=== PATIENT | female | born 1975 | race African-American/Black ===

== ENCOUNTER 2018-01-14 13:12 | Inpatient (IN) | payer OTHER ==
[2018-01-14 14:22] VITALS: BMI 23.6
--- NOTE | 2018-01-14 15:28 | HP ---
CIWA Score Nausea/Vomitin Muscle Tremors: 2 Anxiety: 2 Agitation: 2 Paroxysmal Sweats: 2 Orientation: 0-Oriented Tacttile Disturbances: 2-Mild Itch/Numbness/Burn Auditory Disturbances: 0-None Visual Disturbances: 0-None Headache: 2-Mild CIWA-Ar Total Score: 14 - Admission Criteria [facility] Guidelines: Admission for Medically Managed Detox: Requires at least one of the followin. CIWA greater than 12 2. Seizures within the past 24 hours 3. Delirium tremens within the past 24 hours 4. Hallucinations within the past 24 hours 5. Acute intervention needed for co occurring medical disorder 6. Acute intervention needed for co occurring psychiatric disorder 7. Severe withdrawal that cannot be handled at a lower level of care (continued vomiting, continued diarrhea, abnormal vital signs) requiring intravenous medication and/or fluids 8. Patient presents the following: CIWA greater than 12 Admission Criteria Met: Admission criteria met Admission ROS S - [facility] Chief Complaint: I"m tired of getting high and I need help. Allergies/Adverse Reactions: Allergies Allergy/AdvReac Type Severity Reaction Status Date / Time No Known Allergies Allergy Verified 01/14/18 15:43 History of Present Illness: Female pt with h/o polysubstance use seeking to d/c drug use. Exam Limitations: No Limitations - Ebola screening Have you traveled outside of the country in the last 21 days: No Have you had contact with anyone from an Ebola affected area: No Have you been sick,other than usual withdrawal symptoms: No - Review of Systems Constitutional: Loss of Appetite, Night Sweats, Changes in sleep, Weakness EENT: reports: Dental Problems (missing) Respiratory: reports: SOB with Exertion Cardiac: reports: No Symptoms Reported GI: reports: Nausea, Poor Appetite, Indigestion, Abdominal cramping : reports: Frequency Musculoskeletal: reports: Joint Pain (rt shoulder), Muscle Pain, Joint Stiffness Integumentary: reports: No Symptoms Reported Neuro: reports: Headache, Tingling (toes and finger tips) Endocrine: reports: No Symptoms Reported Hematology: reports: No Symptoms Reported Psychiatric: reports: Anxious, Depressed Other Systems: Reviewed and Negative Patient History - Patient Medical History Hx Anemia: No Hx Asthma: Yes (albuterol ) Hx Chronic Obstructive Pulmonary Disease (COPD): No Hx Cancer: No Hx Cardiac Disorders: No Hx Congestive Heart Failure: No Hx Hypertension: Yes (not taking meds ) Hx Hypercholesterolemia: No Hx Pacemaker: No HX Cerebrovascular Accident: No Hx Seizures: No Hx Dementia: No Hx Diabetes: No Hx Gastrointestinal Disorders: No Hx Liver Disease: No Hx Genitourinary Disorders: No Hx Sexually Transmitted Disorders: No Hx Renal Disease (ESRD): No Hx Thyroid Disease: No Hx Human Immunodeficiency Virus (HIV): No Hx Hepatitis C: No Hx Depression: Yes Hx Suicide Attempt: Yes (x1, cut herself 2009 ) Hx Bipolar Disorder: Yes (topamax, welbutrin , not taken in 8 months ) Hx Schizophrenia: No - Patient Surgical History Past Surgical History: Yes Hx Orthopedic Surgery: Yes (rt rotatorr cuff tear ) Anesthesia Reaction: No - PPD History Documented Results: Negative w/o proof Implanted On Prior [facility] Admission?: Yes PPD to be Administered?: Yes - Reproductive History Patient is a Female of Child Bearing Age (11 -55 yrs old): Yes Last Menstrual Period: 01/12/18 Patient : No - Smoking Cessation Smoking history: Current every day smoker Have you smoked in the past 12 months: Yes Aproximately how many cigarettes per day: 20 Cigars Per Day: 0 Hx Chewing Tobacco Use: No Initiated information on smoking cessation: Yes 'Breaking Loose' booklet given: 01/14/18 - Substance & Tx. History Substance Use Type: Alcohol, Cocaine, Marijuana Hx Substance Use Treatment: No - Substances Abused Alcohol Route: Oral Frequency: Daily Amount used: vodka 1/2 galloon Age of first use: 14 Date of Last Use: 01/14/18 Crack Route: Smoking Frequency: Daily Amount used: 2-3 gms /d Age of first use: 18 Date of Last Use: 01/13/18 Ectasy Route: Oral Frequency: 1-2 times per week Amount used: 1-2/wk Age of first use: 40 Date of Last Use: 01/10/18 Marijuana/Hashish Route: Smoking Frequency: Daily Amount used: 1 oz /d Age of first use: 14 Date of Last Use: 01/14/18 Family Disease History - Family Disease History Family Disease History: Diabetes: Brother, [place]: Father (lung ) Admission Physical Exam [facility] - Vital Signs Vital Signs: Vital Signs - 24 hr 01/14/18 14:20 Temperature 96.4 F L Pulse Rate 78 Respiratory 18 Rate Blood Pressure 116/70 42 y/o f pt with a blonde wig , aox3 in nad ambulating and cooperative with exam - Physical General Appearance: Yes: No Apparent Distress, Appropriately Dressed, Thin, Anxious HEENTM: Yes: EOMI, Hearing grossly Normal, Normal ENT Inspection, Normocephalic , Normal Voice, ELADIO, Other (multiple missing teeth.) Respiratory: Yes: Within Normal Limits, Chest Non-Tender, Lungs Clear, Normal Breath Sounds, Decreased Breath Sounds, No Respiratory Distress Neck: Yes: No masses,lesions,Nodules, Supple, Trachea in good position Breast: Yes: Breast Exam Deferred Cardiology: Yes: Regular Rhythm, Regular Rate, S1, S2 Abdominal: Yes: Non Tender, Flat, Soft, Increased Bowel Sounds Genitourinary: Yes: Frequency Back: Yes: Decreased Range of Motion Musculoskeletal: Yes: Back pain, Joint Stiffness (rt shoulder , with well healed small scars) Extremities: Yes: Tremors Neurological: Yes: laboratory asst II-XII NML intact, Fully Oriented, Alert, Motor Strength 5/5, Normal Response, Numbness (toes cary) Integumentary: Yes: Moist Lymphatic: Yes: Within Normal Limits - Diagnostic (1) Chronic alcoholism Current Visit: Yes Status: Chronic (2) Crack cocaine use Current Visit: Yes Status: Chronic (3) Cannabis abuse Current Visit: Yes Status: Chronic (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
[2018-01-14] MEDS ORDERED: LOPERAMIDE HCL 2 MG CAPSULE PO PRN (15:52)
[2018-01-14] MEDS ORDERED: MENTHOL/PHENOL 1 EACH UD MM PRN (15:52)
[2018-01-14] MEDS ORDERED: MAGNESIUM HYDROX 2400MG/30ML ORAL SUSPENSION 30 ML CUP PO PRN (15:52)
[2018-01-14] MEDS ORDERED: chlordiazePOXIDE HCL 25 MG CAPSULE PO PRN (15:52)
[2018-01-14] MEDS ORDERED: hydrOXYzine PAMOATE 25 MG CAPSULE (FP) PO PRN (15:52)
[2018-01-14] MEDS ORDERED: MAG HYDROX/AL HYDROX/SIMETH 30 ML UNIT-DOSE CUP PO PRN (15:52)
[2018-01-14] MEDS ORDERED: MAGNESIUM CITRATE 300 ML BOTTLE PO PRN (15:52)
[2018-01-14] MEDS ORDERED: P-EPHED 60MG/TRIPROLIDI 2.5MG TABLET PO PRN (15:52)
[2018-01-14] MEDS ORDERED: guaiFENesin/D-METHORPHAN HB 10 ML UNIT-DOSE CUPS PO PRN (15:52)
[2018-01-14] MEDS ORDERED: NICOTINE POLACRILEX 4 MG GUM BC PRN (15:52)
[2018-01-14] MEDS ORDERED: ALBUTEROL SO4 8 GM HFA INHALER IH PRN (15:55)
[2018-01-14] MEDS: chlordiazePOXIDE HCL 25 MG CAPSULE PO SCH ×2 (17:43→23:20)
[2018-01-14] MEDS: IBUPROFEN 400 MG TABLET (FP) PO PRN (20:48)
[2018-01-14] MEDS ORDERED: MELATONIN 5 MG TABLETS PO PRN (22:00)
[2018-01-14] MEDS: BUDESONIDE/FORMETEROL FUMARATE 80/4.5 mcg INHALER IH SCH (23:18)
[2018-01-14] MEDS: THIAMINE HCL 100 MG TABLET (FP) PO SCH (23:19)
[2018-01-15] MEDS: chlordiazePOXIDE HCL 25 MG CAPSULE PO SCH ×4 (05:51→22:13)
[2018-01-15] MEDS: IBUPROFEN 400 MG TABLET (FP) PO PRN ×3 (05:52→22:15)
--- NOTE | 2018-01-15 11:14 | PN ---
S CIWA - CIWA Score Nausea/Vomitin-No Nausea/No Vomiting Muscle Tremors: 4-Moderate,w/Arms Extend Anxiety: 3 Agitation: 4-Moderately Restless Paroxysmal Sweats: 3 Orientation: 0-Oriented Tacttile Disturbances: 0-None Auditory Disturbances: 0-None Visual Disturbances: 0-None Headache: 1-Very Mild CIWA-Ar Total Score: 15 BHS Progress Note (SOAP) Subjective: agitation sweats shakes interrupted sleep body aches irritable Objective: 01/15/18 11:14 Vital Signs Temperature 97.7 F 01/15/18 09:06 Pulse Rate 82 01/15/18 09:06 Respiratory Rate 18 01/15/18 09:06 Blood Pressure 127/77 01/15/18 09:06 O2 Sat by Pulse Oximetry (%) labs ordered; results pending aaox3 ambulating no acute distress Assessment: 01/15/18 11:16 withdrawal sx Plan: continue detox increase fluids f/u pending lab results
[2018-01-15] MEDS: BUDESONIDE/FORMETEROL FUMARATE 80/4.5 mcg INHALER IH SCH ×2 (11:25→22:13)
[2018-01-15] MEDS: PRENATAL VITAMINS W/ FOLIC ACID TABLET (FP) PO SCH (11:30)
[2018-01-15] MEDS: NICOTINE 21 MG/24 HOURS TOPICAL PATCH TD SCH (11:40)
--- NOTE | 2018-01-15 14:45 | CONSULT ---
[facility] Psychiatric Consult - Data Date of interview: 01/15/18 Admission source: [facility] Identifying data: This is 42 years old fe,rolando, single mother of bala, living with family, on PA support, with Bipolar Disorder history, with psychiatric hospitalization history, with history of Heroin, Cannabis, Cocaine, Alcohol, Nicotine dependence/abuse, reporting withdrawal synptoms and seeking for detox. Substance Abuse History: Smoking history: Current every day smoker. Have you smoked in the past 12 months: Yes. Aproximately how many cigarettes per day: 20. Cigars Per Day: 0. Hx Chewing Tobacco Use: No. Initiated information on smoking cessation: Yes. 'Breaking Loose' booklet given: 01/14/18. - Substance & Tx. History. Substance Use Type: Alcohol, Cocaine, Marijuana. Hx Substance Use Treatment: No. - Substances Abused. Alcohol. Route: Oral. Frequency: Daily. Amount used: vodka 1/2 galloon. Age of first use: 14. Date of Last Use : 01/14/18. Crack. Route: Smoking. Frequency: Daily. Amount used: 2-3 gms /d. Age of first use: 18. Date of Last Use: 01/13/18. Ectasy. Route: Oral. Frequency: 1-2 times per week. Amount used: 1-2/wk. Age of first use: 40. Date of Last Use: 01/10/18. Marijuana/Hashish. Route: Smoking. Frequency: Daily. Amount used: 1 oz /d. Age of first use: 14. Date of Last Use: 01/14/18 Medical History: Denies significant medical issues Psychiatric History: Patient reports to carry Bipolar Disorder, reports psychiatric admission on 2009 cutting nher forearm, no stitches visible, reports good response on Wellbutrin XI, and Topamax i9n thye past, patient doesnot remember dosages. Denies suicidal, homicidal history after 2009, motivated to restart medications. Physical/Sexual Abuse/Trauma History: Denies Additional Comment: Topamax 25mg po bid. Wellbutrin XL 150mg poqd. Seroquel 100mg po qhs Mental Status Exam - Mental Status Exam Alert and Oriented to: Person Cognitive Function: Fair Patient Appearance: Well Groomed Mood: Suspicious, Anxious, Irritable Affect: Labile Patient Behavior: Talkative Speech Pattern: Appropriate, Artificially Ventilated Thought Process: Circumstantial, Goal Oriented Thought Disorder: Being Controlled Hallucinations: Denies Suicidal Ideation: Denies Homicidal Ideation: Denies Insight/Judgement: Fair Sleep: Difficulty falling asleep Appetite: Fair Muscle strength/Tone: Normal Gait/Station: Normal Additional Comments: Topamax 25mg po bid. Wellbutrin XL 150mg poqd. Seroquel 100mg po qhs Psychiatric Findings - Problem List (Husser 1, 2,3) (1) Bipolar disorder Current Visit: Yes Status: Acute (2) Ecstasy abuse Current Visit: Yes Status: Acute (3) Cannabis abuse Current Visit: Yes Status: Chronic (4) Chronic alcoholism Current Visit: Yes Status: Chronic (5) Crack cocaine use Current Visit: Yes Status: Chronic - Initial Treatment Plan Initial Treatment Plan: Topamax 25mg po bid. Wellbutrin XL 150mg poqd. Seroquel 100mg po qhs
[2018-01-15] MEDS: QUEtiapine FUMARATE 100 MG TABLET (FP) PO SCH (22:13)
[2018-01-15] MEDS: TOPIRAMATE 25 MG TABLET (FP) PO SCH (22:13)
[2018-01-15] MEDS: THIAMINE HCL 100 MG TABLET (FP) PO SCH (22:13)
[2018-01-16] MEDS: chlordiazePOXIDE HCL 25 MG CAPSULE PO SCH ×2 (06:15→11:19)
[2018-01-16] MEDS: IBUPROFEN 400 MG TABLET (FP) PO PRN ×2 (06:17→22:25)
[2018-01-16 10:09] LABS: BASO % 0.6 % (0-2.0); HEMATOCRIT 36.7 % (32.4-45.2); HEMOGLOBIN 11.9 GM/dL (10.7-15.3); LYMPH % 43.6 % (8-40); MCH 30.6 pg (25.7-33.7); MCHC 32.3 g/dl (32.0-36.0); MEAN CELL VOLUME 94.6 fl (80-96); MEAN PLT VOLUME 8.6 fl (7.5-11.1); MONO % 8.9 % (3.8-10.2); NEUT % 43.9 % (42.8-82.8); PLATELET COUNT 189 K/MM3 (134-434); RBC 3.88 M/mm3 (3.60-5.2); RDW 14.8 % (11.6-15.6); WHITE BLOOD COUNT 3.5 K/mm3 (4.0-10.0)
[2018-01-16 11:01] LABS: ALBUMIN 3.1 g/dl (3.4-5.0); ALK PHOS 70 U/L (45-117); ANION GAP 7 MMOL/L (8-16); BILIRUBIN,TOTAL 0.1 mg/dL (0.2-1); BLOOD UREA NITROGEN 22 mg/dL (7-18); CALCIUM 8.5 mg/dL (8.5-10.1); CHLORIDE 109 mmol/L (98-107); CO2 25 mmol/L (21-32); GLUCOSE,RANDOM 100 mg/dL (74-106); POTASSIUM 4.5 mmol/L (3.5-5.1); SGOT/AST 14 U/L (15-37); SGPT/ALT 21 U/L (13-61); SODIUM 141 mmol/L (136-145); TOT PROT 6.1 g/dl (6.4-8.2)
[2018-01-16] MEDS: TOPIRAMATE 25 MG TABLET (FP) PO SCH ×2 (11:18→22:21)
[2018-01-16] MEDS: PRENATAL VITAMINS W/ FOLIC ACID TABLET (FP) PO SCH (11:18)
[2018-01-16] MEDS: BUDESONIDE/FORMETEROL FUMARATE 80/4.5 mcg INHALER IH SCH ×2 (11:20→22:21)
[2018-01-16] MEDS: ACETAMINOPHEN 325 MG TABLET (FP) PO PRN (11:21)
[2018-01-16] MEDS: NICOTINE 21 MG/24 HOURS TOPICAL PATCH TD SCH (11:22)
--- NOTE | 2018-01-16 11:52 | PN ---
S CIWA - CIWA Score Nausea/Vomitin-No Nausea/No Vomiting Muscle Tremors: 3 Anxiety: 3 Agitation: 3 Paroxysmal Sweats: 3 Orientation: 0-Oriented Tacttile Disturbances: 0-None Auditory Disturbances: 0-None Visual Disturbances: 0-None Headache: 1-Very Mild CIWA-Ar Total Score: 13 BHS Progress Note (SOAP) Subjective: agitation sweats shakes interrupted sleep body aches i need ensure. Objective: 01/16/18 12:02 Vital Signs Temperature 97.3 F L 01/16/18 11:41 Pulse Rate 75 01/16/18 11:41 Respiratory Rate 18 01/16/18 11:41 Blood Pressure 118/76 01/16/18 11:41 O2 Sat by Pulse Oximetry (%) Laboratory Tests 01/16/18 01/16/18 07:00 07:00 WBC 3.5 L RBC 3.88 Hgb 11.9 Hct 36.7 MCV 94.6 MCH 30.6 MCHC 32.3 RDW 14.8 Plt Count 189 MPV 8.6 Absolute Neuts (auto) 1.5 Neutrophils % 43.9 Lymphocytes % 43.6 H Monocytes % 8.9 Eosinophils % 3.0 Basophils % 0.6 Nucleated RBC % 0 Sodium 141 Potassium 4.5 Chloride 109 H Carbon Dioxide 25 Anion Gap 7 L BUN 22 H Creatinine 1.0 Creat Clearance w eGFR > 60 Random Glucose 100 Calcium 8.5 Total Bilirubin 0.1 L AST 14 L ALT 21 Alkaline Phosphatase 70 Total Protein 6.1 L Albumin 3.1 L aaox3 ambulating no acute distress Assessment: 01/16/18 12:02 withdrawal sx Plan: continue detox increase fluids ensure plus bid
[2018-01-16] MEDS: chlordiazePOXIDE 5 MG CAPSULE PO SCH ×2 (18:07→22:22)
[2018-01-16] MEDS: QUEtiapine FUMARATE 100 MG TABLET (FP) PO SCH (22:21)
[2018-01-16] MEDS: THIAMINE HCL 100 MG TABLET (FP) PO SCH (22:22)
[2018-01-17] MEDS: chlordiazePOXIDE 5 MG CAPSULE PO SCH ×2 (06:16→10:17)
[2018-01-17] MEDS: IBUPROFEN 400 MG TABLET (FP) PO PRN (06:18)
[2018-01-17] MEDS: TOPIRAMATE 25 MG TABLET (FP) PO SCH ×2 (10:16→22:10)
[2018-01-17] MEDS: PRENATAL VITAMINS W/ FOLIC ACID TABLET (FP) PO SCH (10:16)
[2018-01-17] MEDS: BUDESONIDE/FORMETEROL FUMARATE 80/4.5 mcg INHALER IH SCH ×2 (10:16→22:09)
[2018-01-17] MEDS: NICOTINE 21 MG/24 HOURS TOPICAL PATCH TD SCH (10:17)
[2018-01-17] MEDS: ACETAMINOPHEN 325 MG TABLET (FP) PO PRN (10:17)
--- NOTE | 2018-01-17 14:03 | PN ---
S Progress Note (SOAP) Subjective: Irritability, agitation, restlessness Objective: 01/17/18 14:02 Vital Signs 01/17/18 01/17/18 07:01 09:29 Temperature 97 F L 97.5 F L Pulse Rate 93 H 86 Respiratory 18 16 Rate Blood Pressure 145/102 H 115/64 Laboratory Last Values WBC 3.5 K/mm3 (4.0-10.0) L 01/16/18 07:00 RBC 3.88 M/mm3 (3.60-5.2) 01/16/18 07:00 Hgb 11.9 GM/dL (10.7-15.3) 01/16/18 07:00 Hct 36.7 % (32.4-45.2) 01/16/18 07:00 MCV 94.6 fl (80-96) 01/16/18 07:00 MCH 30.6 pg (25.7-33.7) 01/16/18 07:00 MCHC 32.3 g/dl (32.0-36.0) 01/16/18 07:00 RDW 14.8 % (11.6-15.6) 01/16/18 07:00 Plt Count 189 K/MM3 (134-434) 01/16/18 07:00 MPV 8.6 fl (7.5-11.1) 01/16/18 07:00 Absolute Neuts (auto) 1.5 K/mm3 (1.5-8.0) 01/16/18 07:00 Neutrophils % 43.9 % (42.8-82.8) 01/16/18 07:00 Lymphocytes % 43.6 % (8-40) H 01/16/18 07:00 Monocytes % 8.9 % (3.8-10.2) 01/16/18 07:00 Eosinophils % 3.0 % (0-4.5) 01/16/18 07:00 Basophils % 0.6 % (0-2.0) 01/16/18 07:00 Nucleated RBC % 0 % (0-0) 01/16/18 07:00 Sodium 141 mmol/L (136-145) 01/16/18 07:00 Potassium 4.5 mmol/L (3.5-5.1) 01/16/18 07:00 Chloride 109 mmol/L (98-107) H 01/16/18 07:00 Carbon Dioxide 25 mmol/L (21-32) 01/16/18 07:00 Anion Gap 7 MMOL/L (8-16) L 01/16/18 07:00 BUN 22 mg/dL (7-18) H 01/16/18 07:00 Creatinine 1.0 mg/dL (0.55-1.3) 01/16/18 07:00 Creat Clearance w eGFR > 60 (>60) 01/16/18 07:00 Random Glucose 100 mg/dL (74-106) 01/16/18 07:00 Calcium 8.5 mg/dL (8.5-10.1) 01/16/18 07:00 Total Bilirubin 0.1 mg/dL (0.2-1) L 01/16/18 07:00 AST 14 U/L (15-37) L 01/16/18 07:00 ALT 21 U/L (13-61) 01/16/18 07:00 Alkaline Phosphatase 70 U/L (45-117) 01/16/18 07:00 Total Protein 6.1 g/dl (6.4-8.2) L 01/16/18 07:00 Albumin 3.1 g/dl (3.4-5.0) L 01/16/18 07:00 RPR Titer Nonreactive (NONREACTIVE) 01/16/18 07:00 Labs noted Assessment: 01/17/18 14:02 Withdrawal sx Plan: Continue detox
[2018-01-17] MEDS: chlordiazePOXIDE HCL 10 MG CAPSULE PO SCH ×2 (17:57→22:10)
[2018-01-17] MEDS: THIAMINE HCL 100 MG TABLET (FP) PO SCH (22:09)
[2018-01-17] MEDS: QUEtiapine FUMARATE 100 MG TABLET (FP) PO SCH (22:10)
[2018-01-18] MEDS: chlordiazePOXIDE HCL 10 MG CAPSULE PO SCH (05:21)
[2018-01-18] MEDS: ACETAMINOPHEN 325 MG TABLET (FP) PO PRN (05:22)
[2018-01-18 07:11] VITALS: BP 118/81; PULSE 100; TEMP 97.3
--- NOTE | 2018-01-18 16:32 | DS ---
[facility] Detox Discharge Summary Admission Date: 01/14/18 Discharge Date: 01/18/18 - History Present History: Alcohol Dependence - Physical Exam Results Vital Signs: Vital Signs Temperature 97.3 F L 01/18/18 07:10 Pulse Rate 100 H 01/18/18 07:10 Respiratory Rate 20 01/18/18 07:10 Blood Pressure 118/81 01/18/18 07:10 O2 Sat by Pulse Oximetry (%) Pertinent Admission Physical Exam Findings: alcohol withdrawal sx Vital Signs Temperature 97.3 F L 01/18/18 07:10 Pulse Rate 100 H 01/18/18 07:10 Respiratory Rate 20 01/18/18 07:10 Blood Pressure 118/81 01/18/18 07:10 O2 Sat by Pulse Oximetry (%) Laboratory Last Values WBC 3.5 K/mm3 (4.0-10.0) L 01/16/18 07:00 RBC 3.88 M/mm3 (3.60-5.2) 01/16/18 07:00 Hgb 11.9 GM/dL (10.7-15.3) 01/16/18 07:00 Hct 36.7 % (32.4-45.2) 01/16/18 07:00 MCV 94.6 fl (80-96) 01/16/18 07:00 MCH 30.6 pg (25.7-33.7) 01/16/18 07:00 MCHC 32.3 g/dl (32.0-36.0) 01/16/18 07:00 RDW 14.8 % (11.6-15.6) 01/16/18 07:00 Plt Count 189 K/MM3 (134-434) 01/16/18 07:00 MPV 8.6 fl (7.5-11.1) 01/16/18 07:00 Absolute Neuts (auto) 1.5 K/mm3 (1.5-8.0) 01/16/18 07:00 Neutrophils % 43.9 % (42.8-82.8) 01/16/18 07:00 Lymphocytes % 43.6 % (8-40) H 01/16/18 07:00 Monocytes % 8.9 % (3.8-10.2) 01/16/18 07:00 Eosinophils % 3.0 % (0-4.5) 01/16/18 07:00 Basophils % 0.6 % (0-2.0) 01/16/18 07:00 Nucleated RBC % 0 % (0-0) 01/16/18 07:00 Sodium 141 mmol/L (136-145) 01/16/18 07:00 Potassium 4.5 mmol/L (3.5-5.1) 01/16/18 07:00 Chloride 109 mmol/L (98-107) H 01/16/18 07:00 Carbon Dioxide 25 mmol/L (21-32) 01/16/18 07:00 Anion Gap 7 MMOL/L (8-16) L 01/16/18 07:00 BUN 22 mg/dL (7-18) H 01/16/18 07:00 Creatinine 1.0 mg/dL (0.55-1.3) 01/16/18 07:00 Creat Clearance w eGFR > 60 (>60) 01/16/18 07:00 Random Glucose 100 mg/dL (74-106) 01/16/18 07:00 Calcium 8.5 mg/dL (8.5-10.1) 01/16/18 07:00 Total Bilirubin 0.1 mg/dL (0.2-1) L 01/16/18 07:00 AST 14 U/L (15-37) L 01/16/18 07:00 ALT 21 U/L (13-61) 01/16/18 07:00 Alkaline Phosphatase 70 U/L (45-117) 01/16/18 07:00 Total Protein 6.1 g/dl (6.4-8.2) L 01/16/18 07:00 Albumin 3.1 g/dl (3.4-5.0) L 01/16/18 07:00 RPR Titer Nonreactive (NONREACTIVE) 01/16/18 07:00 lab noted - Treatment Hospital Course: Detox Protocol Followed, Detoxed Safely, Responded well, Discharged Condition Good, Rehab Referral Accepted Patient has Accepted a Rehab Referral to: [facility] - Medication Discharge Medications: Ambulatory Orders Albuterol Sulfate Inhaler - [Ventolin HFA Inhaler -] 2 puff IH Q4H PRN 01/14/18 Bupropion HCl [Wellbutrin Xl -] 150 mg PO DAILY #30 tab.sr.24h 01/15/18 Quetiapine Fumarate [Seroquel] 100 mg PO HS #30 tablet 01/15/18 Topiramate [Topamax -] 25 mg PO BID #60 tablet 01/15/18 - Diagnosis (1) Uncomplicated alcohol withdrawal Status: Acute - AMA Did Patient Leave Against Medical Advice: No
== END 2018-01-18 09:10 | disposition home or self-care (01) | DRG 774 ==
LOC: YASAS 13:12 → Y6N 17:11
PROC: HZ2ZZZZ Detoxification Services for Substance Abuse Treatment (ICD-10-PCS; principal; 2018-01-14)
DX: F10.230 Alcohol dependence with withdrawal, uncomplicated (principal); F14.10 Cocaine abuse, uncomplicated; F15.10 Other stimulant abuse, uncomplicated; F12.10 Cannabis abuse, uncomplicated; F31.9 Bipolar disorder, unspecified; I10 Essential (primary) hypertension; J45.909 Unspecified asthma, uncomplicated; Z91.5 Personal history of self-harm
CPT/HCPCS: 36415; 80053; 85025; 86593